=== PATIENT | male | born 1960 | race Caucasian/White ===

== ENCOUNTER → 2016-07-22 | Outpatient (CLI) | payer BC ==
[~2016-07-22] MED LIST: CARI350T28 PO; CLXUNK; GEMF600T3 PO; LPRUNK; OPTIRAY 320 IV PRN; OXYC-57 PO; OXYC-643 PO
--- NOTE | 2016-07-22 08:20 | DIAGNOSTIC IMAGING REPORT ---
CT chest combination CHEST COMBO ANGIOGRAPHY CLINICAL HISTORY: ASCENDING AORTIC ANEURYSM aneurysm TECHNIQUE: Pre and postcontrast administration COMPARISON STUDY: Prior studies of 2012 and 2011 FINDINGS: Stable mild aneurysmal distention a sending aorta. Maximum transaxial dimensions are 4.5 x 4.4 cm. This is unchanged from the prior 2 studies. No evidence for dissection. No significant hilar or mediastinal adenopathy. Lungs are considered clear. IMPRESSION: Stable mild aneurysmal dilatation a spending thoracic aorta. No change from the prior studies Electronically signed by: Shamar Sierra M.D. 07/22/2016 8:18 AM Dictated Date/Time: 07/22/2016 8:14 AM
== END | disposition home or self-care (01) ==
LOC: C.CTS 07:44
PROVIDERS: ATTEND Surgery Vascular Surgery
DX: I71.2 Thoracic aortic aneurysm, without rupture (principal)

== ENCOUNTER → 2017-08-04 | Outpatient (CLI) | payer BC ==
[~2017-08-04] MED LIST changes: -CARI350T28 PO; -OPTIRAY 320 IV PRN; -OXYC-57 PO
--- NOTE | 2017-08-04 08:30 | DIAGNOSTIC IMAGING REPORT ---
(CHEST) THORAX WITHOUT CLINICAL HISTORY: Ascending aortic aneurysm COMPARISON STUDY: July 22, 2016 CT DOSE: 598.60 mGy.cm TECHNIQUE: CT of the thorax was performed from the thoracic inlet to the lung bases. Images are reviewed in the axial, sagittal, and coronal planes. IV contrast was not administered for this examination. A dose lowering technique was utilized adhering to the principles of ALARA. FINDINGS: Thyroid: Imaged portions of the thyroid gland are normal in appearance. Thoracic aorta: Again evident is an aneurysm of the ascending thoracic aorta which measures 4.9 cm at the level of the main pulmonary artery. This represents a slight interval increase when compared the preceding study. Heart: There are mild coronary artery calcifications present. Lungs and pleural spaces: No pleural effusions are visualized. There is no focal pulmonary consolidation. There is a stable 2 mm left upper lobe pulmonary nodule. Mediastinum: There is no evidence of pathologic mediastinal lymphadenopathy Katherine: There is no evidence of pathologic hilar adenopathy given the limitations of a noncontrast study Axilla: There is no evidence of pathologic axillary lymphadenopathy Upper abdomen: The gallbladder surgically absent Skeletal structures: There are no lytic or blastic osseous lesions. IMPRESSION: 1. Slight interval increase in the size the ascending thoracic aorta which measures 4.9 cm in maximal diameter. Electronically signed by: Ronny Greenwood M.D. 08/04/2017 8:28 AM Dictated Date/Time: 08/04/2017 8:21 AM
== END | disposition home or self-care (01) ==
LOC: C.CTS 07:57
PROVIDERS: ATTEND Student in an Organized Health Care Education/Training Program
DX: I71.4 Abdominal aortic aneurysm, without rupture (principal)